=== PATIENT | male | born 2000 | race Caucasian/White ===

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

== ENCOUNTER 2021-12-07 10:28 | Emergency (ER) | payer OTHER ==
[~2021-12-07] VITALS: Ht 177.8 cm; Wt 125.0 kg
[~2021-12-07 10:28] MED LIST: TOPUD MT
[2021-12-07 10:30] VITALS: BP 146/69
[2021-12-07] MEDS ORDERED: IBUPROFEN 800MG TABLET PO ONE (10:45)
[2021-12-07] MEDS ORDERED: ACETAMINOPHEN 325MG TABLET PO ONE (10:45)
[2021-12-07] MEDS ORDERED: ACET-2708 MT (11:20)
== END 2021-12-07 11:40 | disposition home or self-care (01) ==
LOC: ER 10:28
DX: S90.31XA Contusion of right foot, initial encounter (principal); S90.01XA Contusion of right ankle, initial encounter; Z88.8 Allergy status to other drugs, medicaments and biological substances; Z91.018 Allergy to other foods; V00.831A Fall from motorized mobility scooter, initial encounter; Y93.89 Activity, other specified; Y92.488 Other paved roadways as the place of occurrence of the external cause
CPT/HCPCS: 73610; 73630; 99284

== ENCOUNTER 2022-04-28 17:29 | Emergency (ER) | payer OTHER ==
[~2022-04-28] VITALS: Ht 185.4 cm; Wt 150.0 kg
[~2022-04-28 17:29] MED LIST changes: +ACET-2708 MT
[2022-04-28 17:35] VITALS: BP 132/85
[2022-04-28] MEDS ORDERED: IBUPROFEN 600MG TABLET PO ONE (21:15)
[2022-04-28] MEDS ORDERED: BENZONATATE 100MG CAPSULE PO ONE (21:15)
[2022-04-28] MEDS ORDERED: CODE473S5 MT (23:17)
== END 2022-04-28 23:35 | disposition home or self-care (01) ==
LOC: ER 17:29
DX: B34.9 Viral infection, unspecified (principal); J06.9 Acute upper respiratory infection, unspecified; Z88.6 Allergy status to analgesic agent; Z20.822 Contact with and (suspected) exposure to COVID-19
CPT/HCPCS: 87426; 87804; 99283; C9803